=== PATIENT | female | born 1950 | race Caucasian/White ===

== ENCOUNTER 2022-10-14 16:22 | Emergency (ER) | payer BC, OTHER ==
[~2022-10-14] VITALS: Ht 167.6 cm; Wt 68.3 kg
[2022-10-14] MEDS ORDERED: ONDANSETRON ODT 4 MG TAB PO ONE (18:45)
[2022-10-14] MEDS ORDERED: HYDROcodone-ACET 5/325MG TAB PO ONE (18:45)
[2022-10-14] MEDS ORDERED: MORPHINE SULFATE INJ 2 MG/ml SYRG IM ONE (20:45)
[2022-10-14] MEDS ORDERED: ACE3T PO ×2 (21:11)
[2022-10-14 21:50] VITALS: BP 123/52
[2022-10-15] MEDS ORDERED: HYDR-4902 PO (20:53)
== END 2022-10-14 21:57 | disposition home or self-care (01) ==
LOC: ER 16:22
DX: S82.51XA Displaced fracture of medial malleolus of right tibia, initial encounter for closed fracture (principal); S82.431A Displaced oblique fracture of shaft of right fibula, initial encounter for closed fracture; I10 Essential (primary) hypertension; Z79.1 Long term (current) use of non-steroidal anti-inflammatories (NSAID); W01.0XXA Fall on same level from slipping, tripping and stumbling without subsequent striking against object, initial encounter; Y93.89 Activity, other specified; Y92.89 Other specified places as the place of occurrence of the external cause; Y99.8 Other external cause status
CPT/HCPCS: 29515; 73610; 96372; 99283; J2270; Q0162

== ENCOUNTER 2023-09-23 09:48 | Inpatient (IN) | payer OTHER ==
[~2023-09-23] VITALS: Ht 167.6 cm; Wt 61.8 kg
[~2023-09-23 09:48] MED LIST: HYDR-4902 PO
[2023-09-23 11:00] VITALS: PULSE 86; RESP 18; O2SAT 94
[2023-09-23 11:08] LABS: Basophils # (auto) 0.1 10 ^3/uL (0-0.2); Basophils % (auto) 0.8 % (0.0-2.0); Eosinophils # (auto) 0 10 ^3/uL (0-0.8); Eosinophils % (auto) 0.1 % (0.0-7.0); Hematocrit 42.3 % (36.0-46.0); Lymphocytes # (auto) 0.4 10 ^3/uL (0.4-5.4); Lymphocytes % (auto) 3.4 % (10.0-50.0); Mean Corpuscular Hemoglobin 32.5 pg (28.0-32.0); Mean Corpuscular Hgb Conc. 33.1 g/dL (32.0-36.0); Mean Corpuscular Volume 98.2 fL (80.0-100.0); Monocytes # (auto) 1.2 10 ^3/uL (0-1.3); Monocytes % (auto) 10.9 % (0.0-12.0); Neutrophils # (auto) 9.6 10 ^3/uL (1.6-8.6); Neutrophils % (auto) 84.8 % (37.0-80.0); Nucleated Red Blood Cells % 0.1 %; Red Blood Cells 4.31 10^6/uL (4.0-5.20); Red Cell Distribution Width 14.2 % (11.8-14.3); White Blood Cell 11.4 10^3/uL (4.4-10.8)
[2023-09-23 11:45] LABS: Alanine Aminotransferase 17 U/L (7-40); Alkaline Phosphatase 99 U/L (46-116); Anion Gap 7 (5-15); Aspartate Aminotransferase 29 U/L (13-40); BUN/Creatinine Ratio 18.4 (10.0-20.0); Blood Urea Nitrogen 25 mg/dL (9-23); Carbon Dioxide 31 mmol/L (20-30); Chloride 92 mmol/L (98-107); Glucose 103 mg/dL (74-106); Sodium 130 mmol/L (136-145)
[2023-09-23 11:46] LABS: Bilirubin, Total 0.7 mg/dL (0.2-1.0); Total Protein 5.9 g/dL (5.7-8.2)
[2023-09-23] MEDS: ONDANSETRON HCL 4 MG/2 ML VIAL IV ONE (11:47)
[2023-09-23] MEDS: MORPHINE SULFATE INJ 2 MG/ml SYRG IV ONE (11:47)
[2023-09-23] MEDS ORDERED: ACETAMINOPHEN 325 MG TAB PO PRN (13:00)
[2023-09-23] MEDS ORDERED: NITROGLYCERIN 0.4 MG SL TAB SL PRN (13:00)
[2023-09-23] MEDS ORDERED: MORPHINE SULFATE INJ 2 MG/ml SYRG IV PRN (13:00)
[2023-09-23] MEDS: SODIUM CHLORIDE 0.9% 1,000 ML IV SCH (13:25)
[2023-09-23] MEDS ORDERED: HYDROmorphone HCL 2 MG/ML VL/or syr IV PRN (13:45)
[2023-09-23] MEDS: HYDROmorphone HCL 2 MG/ML VL/or syr IV PRN (14:42)
[2023-09-23 15:31] LABS: Urine Bacteria None Seen /hpf (None Seen)
[2023-09-23 15:49] LABS: Urine Amorphous Crystal FEW /hpf (None Seen); Urine Blood Negative /uL (Negative); Urine Clarity Clear (Clear); Urine Color Light-Yellow (Yellow); Urine Hyaline Cast FEW /lpf (0 - 2); Urine Protein, UAD TRACE (Negative); Urine Specific Gravity 1.018 (1.001-1.035); Urine Urobilinogen Normal (Negative); Urine WBC <1 /hpf (0 - 5)
[2023-09-23 18:47] VITALS: PULSE 84; RESP 20; O2SAT 97
[2023-09-23 18:52] VITALS: BP 160/83; PULSE 84; RESP 20; TEMP 98.4; O2SAT 97
[2023-09-23 20:00] VITALS: PULSE 81
[2023-09-23 21:00] VITALS: BP 126/83; PULSE 86; RESP 20; TEMP 97.4; O2SAT 94
[2023-09-24] VITALS (9 sets, daily range): BP systolic 118–156; BP diastolic 80–98; PULSE 77–87; RESP 17–20; TEMP 97–98.2; O2SAT 93–98
[2023-09-24] MEDS: ACETAMINOPHEN 325 MG TAB PO PRN (01:27)
[2023-09-24 06:52] LABS: Basophils # (auto) 0 10 ^3/uL (0-0.2); Basophils % (auto) 0.2 % (0.0-2.0); Eosinophils # (auto) 0 10 ^3/uL (0-0.8); Eosinophils % (auto) 0.2 % (0.0-7.0); Hematocrit 41.9 % (36.0-46.0); Hemoglobin 14.1 g/dL (12.2-16.2); Lymphocytes # (auto) 0.6 10 ^3/uL (0.4-5.4); Lymphocytes % (auto) 6.3 % (10.0-50.0); Mean Corpuscular Hemoglobin 33.7 pg (28.0-32.0); Mean Corpuscular Hgb Conc. 33.6 g/dL (32.0-36.0); Mean Corpuscular Volume 100.3 fL (80.0-100.0); Monocytes # (auto) 1.5 10 ^3/uL (0-1.3); Monocytes % (auto) 15.5 % (0.0-12.0); Neutrophils # (auto) 7.3 10 ^3/uL (1.6-8.6); Neutrophils % (auto) 77.8 % (37.0-80.0); Red Blood Cells 4.18 10^6/uL (4.0-5.20); Red Cell Distribution Width 14.1 % (11.8-14.3); White Blood Cell 9.4 10^3/uL (4.4-10.8)
[2023-09-24 07:15] LABS: Alanine Aminotransferase 16 U/L (7-40); Albumin 3.8 g/dL (3.2-4.8); Alkaline Phosphatase 86 U/L (46-116); Anion Gap 10 (5-15); Aspartate Aminotransferase 24 U/L (13-40); BUN/Creatinine Ratio 27.4 (10.0-20.0); Blood Urea Nitrogen 20 mg/dL (9-23); Carbon Dioxide 26 mmol/L (20-30); Chloride 97 mmol/L (98-107); Glucose 83 mg/dL (74-106); Potassium 4.2 mmol/L (3.5-5.1); Sodium 133 mmol/L (136-145)
[2023-09-24 07:16] LABS: Bilirubin, Total 0.9 mg/dL (0.2-1.0); Total Protein 5.8 g/dL (5.7-8.2)
[2023-09-24] MEDS: ONDANSETRON HCL 4 MG/2 ML VIAL IV PRN (10:40)
[2023-09-24] MEDS: MAALOX PLUS or MAALOX 30 ML PO PRN (15:07)
[2023-09-24] MEDS: PROMETHAZINE HCL 6.25 MG/5 ML ORAL SYRUP PO PRN (17:21)
[2023-09-24] MEDS ORDERED: HYDROcodone-ACET 5/325MG TAB PO PRN (19:00)
[2023-09-24] MEDS: HYDROcodone-ACET 10/325MG TAB PO PRN (20:16)
[2023-09-25] VITALS (9 sets, daily range): BP systolic 120–172; BP diastolic 61–98; PULSE 65–86; RESP 14–20; TEMP 97.9–98.7; O2SAT 95–99
[2023-09-25] MEDS: LORazepam 2MG/ML-1ML VIAL IV PRN (10:30)
[2023-09-25 11:03] LABS: Basophils # (auto) 0 10 ^3/uL (0-0.2); Basophils % (auto) 0.2 % (0.0-2.0); Eosinophils # (auto) 0 10 ^3/uL (0-0.8); Hematocrit 43.2 % (36.0-46.0); Hemoglobin 14.6 g/dL (12.2-16.2); Lymphocytes # (auto) 0.3 10 ^3/uL (0.4-5.4); Lymphocytes % (auto) 2.7 % (10.0-50.0); Mean Corpuscular Hemoglobin 33.2 pg (28.0-32.0); Mean Corpuscular Hgb Conc. 33.7 g/dL (32.0-36.0); Mean Corpuscular Volume 98.5 fL (80.0-100.0); Monocytes # (auto) 1.7 10 ^3/uL (0-1.3); Monocytes % (auto) 12.9 % (0.0-12.0); Neutrophils # (auto) 10.9 10 ^3/uL (1.6-8.6); Neutrophils % (auto) 84.2 % (37.0-80.0); Nucleated Red Blood Cells % 0.1 %; Red Blood Cells 4.38 10^6/uL (4.0-5.20); White Blood Cell 12.9 10^3/uL (4.4-10.8)
[2023-09-25 11:22] LABS: Alanine Aminotransferase 13 U/L (7-40); Albumin 4.2 g/dL (3.2-4.8); Alkaline Phosphatase 92 U/L (46-116); Anion Gap 11 (5-15); Aspartate Aminotransferase 15 U/L (13-40); BUN/Creatinine Ratio 13.6 (10.0-20.0); Bilirubin, Total 0.8 mg/dL (0.2-1.0); Calcium 8.9 mg/dL (8.5-10.1); Carbon Dioxide 25 mmol/L (20-30); Chloride 97 mmol/L (98-107); Glucose 118 mg/dL (74-106); Potassium 3.1 mmol/L (3.5-5.1); Sodium 133 mmol/L (136-145); Total Protein 6.5 g/dL (5.7-8.2)
[2023-09-25 11:28] LABS: Blood Urea Nitrogen 8 mg/dL (9-23)
[2023-09-25 12:44] LABS: INR 0.99 (0.9-1.15); Partial Thromboplastin Time 28.2 SEC (24.5-34.5); Prothrombin Time 10.5 sec (9.3-11.8)
[2023-09-25] MEDS ORDERED: SERT-206 PO (14:20)
[2023-09-25] MEDS ORDERED: NIFE1TAB31 PO (14:20)
[2023-09-25] MEDS ORDERED: ATOR20TA PO (14:20)
[2023-09-25] MEDS ORDERED: ONDA-155 PO (14:20)
[2023-09-25] MEDS ORDERED: TRAM50TA2 PO (14:20)
[2023-09-25] MEDS ORDERED: MIDAZOLAM HCL 2MG/2ML 2ml VIAL (1mg/ml) ONE (14:51)
[2023-09-25] MEDS ORDERED: fentaNYL CITRATE 100 MCG/2 ML VL ONE (14:52)
[2023-09-25] MEDS: SODIUM CHLORIDE 0.9% 1,000 ML IV SCH (16:45)
[2023-09-25] MEDS: ONDANSETRON HCL 4 MG/2 ML VIAL IV ONE (17:15)
[2023-09-25] MEDS ORDERED: HYDROmorphone HCL 2 MG/ML VL/or syr IV PRN (17:15)
[2023-09-25] MEDS: MEPERIDINE HCL (25 MG/ML) 1ML VIAL IV PRN (17:44)
[2023-09-25] MEDS ORDERED: hydrALAZINE HCL 20 MG/ML VL IV PRN (18:45)
[2023-09-25] MEDS: NIFEdipine ER 30 MG TAB PO ONE (19:06)
[2023-09-25] MEDS: ceFAZolin 2 GM/D5W50ml 50 ML IV SCH (21:16)
[2023-09-26 01:00] VITALS: BP 133/84; PULSE 79; RESP 16; TEMP 98.2; O2SAT 94
[2023-09-26 05:00] VITALS: BP 142/87; PULSE 82; RESP 16; TEMP 98.3; O2SAT 96
[2023-09-26 06:56] LABS: Basophils # (auto) 0 10 ^3/uL (0-0.2); Basophils % (auto) 0.4 % (0.0-2.0); Eosinophils # (auto) 0 10 ^3/uL (0-0.8); Eosinophils % (auto) 0.2 % (0.0-7.0); Hematocrit 37.4 % (36.0-46.0); Hemoglobin 12.8 g/dL (12.2-16.2); Lymphocytes # (auto) 0.4 10 ^3/uL (0.4-5.4); Lymphocytes % (auto) 3.2 % (10.0-50.0); Mean Corpuscular Hemoglobin 33.7 pg (28.0-32.0); Mean Corpuscular Hgb Conc. 34.1 g/dL (32.0-36.0); Mean Corpuscular Volume 98.7 fL (80.0-100.0); Monocytes # (auto) 2.1 10 ^3/uL (0-1.3); Monocytes % (auto) 17.6 % (0.0-12.0); Neutrophils # (auto) 9.4 10 ^3/uL (1.6-8.6); Neutrophils % (auto) 78.6 % (37.0-80.0); Red Blood Cells 3.79 10^6/uL (4.0-5.20); Red Cell Distribution Width 14.2 % (11.8-14.3); White Blood Cell 11.9 10^3/uL (4.4-10.8)
[2023-09-26 07:02] LABS: Calcium 8.3 mg/dL (8.5-10.1); Chloride 97 mmol/L (98-107); Potassium 2.9 mmol/L (3.5-5.1); Sodium 133 mmol/L (136-145)
[2023-09-26 07:03] LABS: Anion Gap 9 (5-15); Carbon Dioxide 27 mmol/L (20-30)
[2023-09-26 07:08] LABS: BUN/Creatinine Ratio 9.1 (10.0-20.0); Blood Urea Nitrogen 5 mg/dL (9-23); Glucose 98 mg/dL (74-106)
[2023-09-26 08:00] VITALS: PULSE 79
[2023-09-26] MEDS: POTASSIUM CHL 20 Meq TABLET PO ONE (08:53)
[2023-09-26] MEDS: NIFEdipine ER 30 MG TAB PO SCH (08:54)
[2023-09-26 09:00] VITALS: BP 135/86; PULSE 84; RESP 20; TEMP 98.7; O2SAT 96
[2023-09-26] MEDS: IOHEXOL 350 MG/ML 100ML IJ ONE (09:05)
[2023-09-26] MEDS: TRANEXAMIC ACID 20 ML ONE (09:06)
[2023-09-26] MEDS: ceFAZolin 1GM/50ML 100 ML IV ONE (09:07)
[2023-09-26] MEDS: POTASSIUM EFFERVESENT TAB 25 MEQ PO ONE (09:07)
[2023-09-26] MEDS: VANCOMYCIN HCL 1000 MG VL ONE (09:07)
[2023-09-26] MEDS: ROPIVACAINE 0.5% (5MG/ML) 20ML AMPULE IJ ONE (09:07)
[2023-09-26 13:00] VITALS: BP 123/77; PULSE 83; RESP 20; TEMP 98.4; O2SAT 92
[2023-09-26] MEDS: ENOXAPARIN SOD 40 MG/0.4 ML SYRINGE SC SCH (15:33)
== END 2023-09-26 15:30 | DRG 521 ==
LOC: ER 09:48 → EDBD 09:48 → TELE 13:03 → TELE-CENTR 18:34
PROVIDERS: ADMIT Student in an Organized Health Care Education/Training Program; ATTEND Student in an Organized Health Care Education/Training Program
PROC: 0SRS0J9 Replacement of Left Hip Joint, Femoral Surface with Synthetic Substitute, Cemented, Open Approach (ICD-10-PCS; principal; 2023-09-25 14:49)
DX: S72.002A Fracture of unspecified part of neck of left femur, initial encounter for closed fracture (principal); I21.A1 Myocardial infarction type 2; N17.0 Acute kidney failure with tubular necrosis; E87.1 Hypo-osmolality and hyponatremia; F10.239 Alcohol dependence with withdrawal, unspecified; E78.5 Hyperlipidemia, unspecified; J44.9 Chronic obstructive pulmonary disease, unspecified; G62.9 Polyneuropathy, unspecified; Y90.9 Presence of alcohol in blood, level not specified; W01.0XXA Fall on same level from slipping, tripping and stumbling without subsequent striking against object, initial encounter; I10 Essential (primary) hypertension; Z87.891 Personal history of nicotine dependence; Z85.038 Personal history of other malignant neoplasm of large intestine; Y93.89 Activity, other specified; Y92.89 Other specified places as the place of occurrence of the external cause; Y99.8 Other external cause status
CPT/HCPCS: 36415; 71045; 72170; 73501; 74176; 80048; 80053; 81001; 83880; 84484; 85025; 85610; 85730; 86850; 86900; 86901; 93005; 93306; 96374; 96375; 97163; G0378; J2250; J2405